=== PATIENT | female | born 1995 | race Caucasian/White ===

== ENCOUNTER 2017-08-04 15:40 | Emergency (ER) | payer BC ==
[~2017-08-04 15:40] MED LIST: CLIN300C99 PO; ESCI20TA38 PO; ONDA4TAB9 PO
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
[2017-08-04] MEDS ORDERED: cefTRIAXone 250 MG VIAL IM ONE (17:40)
[2017-08-04] MEDS ORDERED: LEVONORGESTREL 1.5 MG TAB PO ONE (17:40)
[2017-08-04] MEDS ORDERED: AZITHROMYCIN 250 MG TAB PO ONE (17:40)
[2017-08-04] MEDS ORDERED: METRONIDAZOLE 500 MG TABLET PO ONE (17:40)
== END 2017-08-04 17:45 | disposition home or self-care (01) ==
LOC: ER 16:08
DX: T74.21XA Adult sexual abuse, confirmed, initial encounter (principal); K62.89 Other specified diseases of anus and rectum; S20.211A Contusion of right front wall of thorax, initial encounter; S20.111A Abrasion of breast, right breast, initial encounter; S50.812A Abrasion of left forearm, initial encounter; S70.211A Abrasion, right hip, initial encounter; S20.411A Abrasion of right back wall of thorax, initial encounter; R51 Headache; N93.9 Abnormal uterine and vaginal bleeding, unspecified
CPT/HCPCS: 81025; 96372; 99284; A9270; J0696; Q0144

== ENCOUNTER 2017-09-17 16:13 | Emergency (ER) | payer BC, OTHER ==
--- NOTE | 2017-09-17 16:14 | ER Report ---
History and Physical Time Seen By MD: 16:14 Hx. of Stated Complaint: allergic reaction HPI/ROS 22-year-old was all over itchy body rash 2 weeks was seen at urgent care a week ago was put on a Medrol Dosepak stated that helped until that was discontinued in rash recurred on states that his head to toe is itchy red raised states that she's had multiple episodes of this before has multiple environmental allergies is not sure what her contact was this time Allergies: Coded Allergies: latex (Verified Allergy, Unknown, 08/04/17) Home Meds Active Scripts Diphenhydramine Hcl (BENADRYL) 25 Mg Capsule, 25 MG PO Q6H for 5 Days, #20 CAPSULE Prov:BENJAMIN ORELLANA 09/17/17 Prednisone (PREDNISONE) 20 Mg Tablet, 40 MG PO QDAY for 5 Days, #5 TAB Prov:BENJAMIN ORELLANA 09/17/17 Reported Medications Albuterol Sulfate (VENTOLIN HFA) 18 Gm Inh, 1-2 PUFF INH 3-4XD, INH 09/17/17 Venlafaxine Hcl (EFFEXOR XR) 75 Mg Cap.er.24h, 75 MG PO TID 09/17/17 Discontinued Reported Medications Escitalopram Oxalate (LEXAPRO) 20 Mg Tablet, 20 MG PO QDAY, TAB 02/15/17 Past Medical/Surgical History History depression, history of recurrent allergic reaction Hx Smoking: No Exposure to Second Hand Smoke?: No Hx Substance Use Disorder: No Hx Alcohol Use: No Constitutional Vital Sign - Last 24 Hours 09/17/17 09/17/17 09/17/17 09/17/17 16:13 16:18 16:18 16:19 Pulse ??? 99 ??? Resp 16 B/P (MAP) 120/94 (103) Pulse Ox 96 O2 Delivery Room Air 09/17/17 09/17/17 09/17/17 09/17/17 16:23 16:28 16:33 16:34 Pulse 97 100 102 B/P (MAP) 118/70 (86) Pulse Ox 95 96 96 09/17/17 09/17/17 09/17/17 09/17/17 16:38 16:43 16:48 16:53 Pulse 99 94 82 81 Pulse Ox 96 97 97 97 4/1609/17/17 09/17/17 09/17/17 16:58 17:03 17:08 17:13 Pulse 81 95 94 87 Pulse Ox 96 98 98 98 09/17/17 09/17/17 09/17/17 09/17/17 17:18 17:23 17:28 17:33 Pulse 91 92 87 87 Pulse Ox 94 98 97 96 09/17/17 09/17/17 09/17/17 09/17/17 17:48 18:03 18:15 18:15 Pulse 85 92 92 Resp 18 Pulse Ox 97 96 93 O2 Delivery Room Air 09/17/17 09/17/17 09/17/17 09/17/17 18:18 18:20 18:33 18:45 Pulse 93 101 101 Resp 18 B/P (MAP) 122/74 (90) Pulse Ox 100 96 09/17/17 18:48 Pulse 97 Pulse Ox 95 Intake and Output 09/17/17 09/17/17 09/18/17 15:00 23:00 07:00 Intake Total 1050 ml Balance 1050 ml Physical Exam General Appearance: [The patient is alert, has no immediate need for airway protection and no current signs of toxicity.] [ ] Eyes: Pupils equal and round no injection. Respiratory: Chest is non tender, lungs are clear to auscultation. Cardiac: regular rate and rhythm [ ] Gastrointestinal: Abdomen is soft and non tender, no masses, bowel sounds normal. Musculoskeletal: Neck: Neck is supple and non tender. Extremities have full range of motion and are non tender. Skin: Head to toe red raised pruritic body rash [ ] DIFFERENTIAL DIAGNOSIS: After history and physical exam differential diagnosis was considered for allergic reaction, Medical Decision Making Data Points Laboratory Hematology Test 09/17/17 16:45 Group A Streptococcus Screen Negative (NEGATIVE) Chemistry Test 09/17/17 16:45 Group A Streptococcus Screen Negative (NEGATIVE) ED Course/Re-evaluation ED Course Patient with allergic reaction did have slight swelling in her lips received 125 Solu-Medrol in the emergency room as well as 50 mg Benadryl IV a liter of normal saline IV Pepcid 20 mg IV piggyback and albuterol nebulizer she did feel much better after treatment head had a current reaction that was similar and had just finished a Medrol Dosepak she had was given in follow-up information for an bedspread inspector in [place] and she will follow-up with her primary care physician tomorrow Re-evaluation Home with Benadryl, and prednisone Decision to Disposition Date: Sep 17, 2017 Decision to Disposition Time: 18:48 Depart Departure Latest Vital Signs Vital Signs Date Time Temp Pulse Resp B/P (MAP) Pulse Ox O2 Delivery O2 Flow Rate FiO2 09/17/17 18:48 97 95 09/17/17 18:45 122/74 (90) 09/17/17 18:20 18 09/17/17 18:15 Room Air Impression: Primary Impression: Allergic reaction Condition: Improved Disposition: HOME OR SELF-CARE Referrals: SEGUNDO WOLFF MD (PCP) 1 Day New Scripts Diphenhydramine Hcl (BENADRYL) 25 Mg Capsule 25 MG PO Q6H for 5 Days, #20 CAPSULE Prov: BENJAMIN ORELLANA 09/17/17 Prednisone (PREDNISONE) 20 Mg Tablet 40 MG PO QDAY for 5 Days, #5 TAB Prov: BENJAMIN ORELLANA 09/17/17 Patient Instructions: General Allergic Reaction (ED) Additional Instructions: Contact information given for bedspread inspector in [place] please call for follow-up appointment see her primary care physician tomorrow take Benadryl 25 mg 4 times a day for the next 5 days. Prednisone 40 mg daily next 5 days turn for any worsening symptoms any difficulty swallowing any problems with her breathing BENJAMIN ORELLANA Sep 17, 2017 16:14
[2017-09-17] MEDS ORDERED: ANAPHYLAXIS KIT 1 EA ONE (16:17)
[2017-09-17] MEDS ORDERED: FAMOTIDINE(*) 20MG/50ML PREMIX 50 ML IVPB ONE (16:20)
[2017-09-17] MEDS ORDERED: NS(*) 0.9% 1000 ML BAG 1,000 ML IV ONE (16:20)
[2017-09-17] MEDS ORDERED: methylPREDNIS SUCC 125 MG/2ML IVP ONE (16:20)
[2017-09-17] MEDS ORDERED: diphenhydrAMINE 50 MG/ML VIAL IVP ONE (16:20)
[2017-09-17] MEDS ORDERED: VENL75CA58 PO (16:23)
[2017-09-17] MEDS ORDERED: ALB18R INH (16:24)
[2017-09-17] MEDS ORDERED: PRED20TA6 PO (17:43)
[2017-09-17] MEDS ORDERED: DIPH-740 PO (17:43)
[2017-09-17] MEDS ORDERED: ALBUTEROL 2.5 MG/3 ML NEB NEB ONE (18:15)
[2017-09-17] MEDS ORDERED: diphenhydrAMINE 25 MG CAP PO ONE (18:40)
[2017-09-17 18:45] VITALS: BP 122/74
== END 2017-09-17 18:53 | disposition home or self-care (01) ==
LOC: ER 16:16
DX: T78.40XA Allergy, unspecified, initial encounter (principal)
CPT/HCPCS: 87081; 87880; 94640; 96361; 96365; 96375; 99284; J1200; J2930; J3490; J7030; J7613; Q0163

== ENCOUNTER 2017-09-27 02:32 | Emergency (ER) | payer BC ==
[~2017-09-27 02:32] MED LIST changes: +ALB18R INH; +DIPH-740 PO; +PRED20TA6 PO; +VENL75CA58 PO
[2017-09-27] MEDS ORDERED: FAMOTIDINE(*) 20MG/50ML PREMIX 50 ML IVPB ONE (02:38)
[2017-09-27] MEDS ORDERED: NS(*) 0.9% 1000 ML BAG 1,000 ML IV ONE (02:38)
[2017-09-27] MEDS ORDERED: methylPREDNIS SUCC 125 MG/2ML IVP ONE (02:40)
[2017-09-27] MEDS ORDERED: diphenhydrAMINE 50 MG/ML VIAL IVP ONE (02:40)
[2017-09-27 02:53] LABS: PLATELET COUNT, AUTOMATED 272 K/uL (150-450)
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
--- NOTE | 2017-09-27 02:57 | EKG ---
FACILITY: [facility] - [place] PATIENT NAME: CHEN CAREY : [id number] MR: [id number] V: [id number] EXAM DATE: ORDERING PHYSICIAN: SUNNY CAIN TECHNOLOGIST: LIBRA Test Reason : CHEST PAIN Blood Pressure : / mmHG Vent. Rate : 100 BPM Atrial Rate : 100 BPM P-R Int : 180 ms QRS Dur : 076 ms QT Int : 340 ms P-R-T Axes : 055 060 036 degrees QTc Int : 438 ms Normal sinus rhythm Low voltage QRS Borderline ECG No previous ECGs available Confirmed by RHEA PATRICK ([id number]) on 09/27/2017 12:31:19 PM Referred By: Confirmed By:RHEA PATRICK
[2017-09-27] MEDS ORDERED: ONDANSETRON 4 MG/2 ML VIAL IVP ONE (04:20)
[2017-09-27] MEDS ORDERED: MORPHINE 4 MG/ML SDV IVP PRN (04:20)
--- NOTE | 2017-09-27 04:39 | RADIOLOGY IMAGING REPORT ---
FACILITY: [facility] - [place], [place] PATIENT NAME: Jenelle Marino : 1995 MR: [id number] V: [id number] EXAM DATE: [id number] ORDERING PHYSICIAN: SUNNY CAIN TECHNOLOGIST: Location: Patient: Jenelle Marino : 1995 Visit/Account:[id number] Date of Sevice: 09/27/2017 Exam type: CHEST SINGLE AP History: Chest pain, vomiting Comparison: None. Findings: Both lungs are well-expanded. Slightly prominent interstitial markings may represent breast attenuati on. There is no focal infiltrate, pleural effusion or pneumothorax. Heart size is normal. The osseous structures demonstrate a prominent rightward thoracic scoliosis. IMPRESSION: 1. No acute cardiopulmonary disease. Report Dictated By: Jose Pierre MD at 09/27/2017 4:33 AM Report E-Signed By: Jose Pierre MD at 09/27/2017 4:34 AM WSN:[id number]
[2017-09-27] MEDS ORDERED: IOPAMIDOL 76% 75 ML INFUS BTL 75 ML ONE ×2 (06:08→06:32)
[2017-09-27] MEDS ORDERED: NS 0.9% 150 ML BAG 150 ML ONE ×2 (06:08→06:32)
[2017-09-27] MEDS ORDERED: birth control (06:34)
[2017-09-27 07:00] VITALS: BP 122/76
--- NOTE | 2017-09-27 07:43 | RADIOLOGY IMAGING REPORT ---
FACILITY: [facility] PATIENT NAME: Jenelle Marino : 1995 MR: [id number] V: [id number] EXAM DATE: [id number] ORDERING PHYSICIAN: SUNNY CAIN TECHNOLOGIST: Location: [facility] - [place] Patient: Jenelle Marino : 1995 Visit/Account:[id number] Date of Sevice: 09/27/2017 CTA CHEST WW/O CNTR (PULM ANG) HISTORY: Clinical concern for pulmonary embolus. COMPARISON: No prior CT. Chest x-ray earlier same day. TECHNIQUE: Pulmonary embolus protocol - Thin-slice axial imaging of the chest was performed during ma ximal pulmonary arterial opacification with intravenous nonionic iodinated contrast. 3D coronal slab MIPs and 2D reconstructions in the coronal and sagittal planes were performed to aid in pulmonary emb olus detection. Outreach Nurse images have been stored on PACS. One of the following dose optimization techniques was utilized in the performance of this exam: Autom ated exposure control; adjustment of the mA and/or kV according to the patient's size; or use of an i terative reconstruction technique. Specific details can be referenced in the facility's radiology CT exam operational policy. CONTRAST: 125 mL of IV Isovue-370. FINDINGS: Images were repeated due to suboptimal opacification of the pulmonary arteries. Pulmonary arteries: Bifurcation of the pulmonary arteries is improved on the second series and there is adequate opacification to the segmental branches. There are no filling defects in the visible pulm onary arteries. Pulmonary arteries are normal in caliber. Thoracic inlet: Normal. Aorta: No aneurysm or dissection. There is no atherosclerosis of the aorta. Heart / Pericardium: The heart is normal. There is no ventricular septal deviation. There is no peric ardial effusion. There is no coronary artery calcification. Mediastinum / Charisma: Normal mediastinum. No lymphadenopathy. Lungs / Pleura: No pleural effusion. There is minimal dependent atelectasis. No pneumothorax. The air ways are normal. Upper abdomen: Normal. Musculoskeletal/vertebra/body wall: There are numerous Schmorl nodes. There is mild wedging of mid to lower thoracic vertebral bodies, likely physiologic. There is a moderate rightward curvature of the thoracic spine. IMPRESSION: 1. No pulmonary embolism. Report Dictated By: Kourtney Stockton at 09/27/2017 7:30 AM Report E-Signed By: Kourtney Stockton at 09/27/2017 7:39 AM WSN:[id number]
== END 2017-09-27 08:15 | disposition home or self-care (01) ==
LOC: ER 02:49
DX: R07.9 Chest pain, unspecified (principal)
CPT/HCPCS: 71045; 71275; 84484; 84703; 85025; 85379; 93005; 96361; 96365; 96375; 99284; J1200; J2270; J2405; J2930; J3490; J7030; Q9967; 82040; 82247; 82310; 82374; 82435; 82565; 82947; 84075; 84132; 84155; 84295; 84450; 84460; 84520

== ENCOUNTER → 2017-11-13 | Outpatient (CLI) | payer BC ==
[~2017-11-13] MED LIST changes: +birth control
[2017-11-13 11:51] LABS: PLATELET COUNT, AUTOMATED 301 K/uL (150-450)
== END ==
LOC: LAB 10:58
PROVIDERS: ATTEND Specialist
DX: L50.1 Idiopathic urticaria (principal); L29.9 Pruritus, unspecified
CPT/HCPCS: 36415; 82040; 82247; 82310; 82374; 82435; 82565; 82785; 82947; 84075; 84132; 84155; 84295; 84443; 84450; 84460; 84520; 85025; 85651; 86038; 86140; 86376

== ENCOUNTER 2017-12-20 07:15 | Emergency (ER) | payer BC ==
--- NOTE | 2017-12-20 07:17 | ER Report ---
History and Physical Time Seen By MD: 07:17 HPI/ROS CHIEF COMPLAINT: Hives HISTORY OF PRESENT ILLNESS: Patient is a 22-year-old female with no contributory past medical history who is been having episodic hives since this past September. She has been seen by a both the ER in urgent care for hives treated with antihistamines and a course of steroids. She is followed up with an allergy /immunology and had testing done and was found to be allergic to "tree nuts". She denies any new pets or detergents or chemical exposures. She denies any respiratory distress. Patient presents today with diffuse hives throughout her body. She has been consistently taking Benadryl every 6 hours without significant relief. Patient does carry an epinephrine pen but has not used it. REVIEW OF SYSTEMS: Respiratory: No cough, no dyspnea. Cardiovascular: No chest pain, no palpitations. Gastrointestinal: No vomiting, no abdominal pain. Musculoskeletal: No back pain. Skin: Hives Allergies: Coded Allergies: latex (Verified Allergy, Unknown, 08/04/17) tree nut (Verified Allergy, Unknown, 09/27/17) Home Meds Active Scripts Diphenhydramine Hcl (BENADRYL) 25 Mg Capsule, 25 MG PO Q6H for 5 Days, #20 CAPSULE Prov:BENJAMIN ORELLANA 09/17/17 Reported Medications Montelukast Sodium (SINGULAIR) 10 Mg Tablet, 1 TAB PO QDAY, TAB 12/20/17 Albuterol Sulfate (VENTOLIN HFA) 18 Gm Inh, 1-2 PUFF INH 3-4XD, INH 09/17/17 Venlafaxine Hcl (EFFEXOR XR) 75 Mg Cap.er.24h, 75 MG PO TID 09/17/17 Discontinued Reported Medications [ control] No Conflict Check 09/27/17 Past Medical/Surgical History Noncontributory towards this chief complaint Hx Smoking: No Exposure to Second Hand Smoke?: No Hx Substance Use Disorder: No Hx Alcohol Use: No Constitutional Vital Sign - Last 24 Hours 12/20/17 12/20/17 07:18 07:51 Temp 98.7 Pulse 110 98 Resp 18 16 B/P (MAP) 133/75 118/73 (88) Pulse Ox 93 95 O2 Delivery Room Air Physical Exam General Appearance: The patient is alert, has no immediate need for airway protection and no current signs of toxicity. Eyes: Pupils equal and round no injection. Respiratory: Chest is non tender, lungs are clear to auscultation. Cardiac: regular rate and rhythm Gastrointestinal: Abdomen is soft and non tender, no masses, bowel sounds normal. Musculoskeletal: Neck: Neck is supple and non tender. Extremities have full range of motion and are non tender. Skin: Hives Medical Decision Making ED Course/Re-evaluation ED Course 12/20/2017 7:44:03 am plan at this time will be to give IM epinephrine. We'll discharge the patient on a course of oral steroids along with cyproheptadine Decision to Disposition Date: Dec 20, 2017 Decision to Disposition Time: 07:44 Depart Departure Latest Vital Signs Vital Signs Date Time Temp Pulse Resp B/P (MAP) Pulse Ox O2 Delivery O2 Flow Rate FiO2 12/20/17 07:51 98 16 118/73 (88) 95 12/20/17 07:18 98.7 Room Air Impression: Primary Impression: Hives Condition: Improved Disposition: HOME OR SELF-CARE Referrals: SEGUNDO WOLFF MD (PCP) 1 Week if symptoms persist Patient Instructions: Urticaria (ED) Additional Instructions: Discontinue use of Benadryl while taking cyproheptadine as directed. Take your oral steroids as directed until complete Keep your follow-up appointment with dermatology. VALENTE HENDRIX MD Dec 20, 2017 07:17
[2017-12-20] MEDS ORDERED: MONT10TA PO (07:27)
[2017-12-20] MEDS ORDERED: EPINEPHrine 0.3 MG SYR IM ONLY ONE (07:35)
[2017-12-20 07:51] VITALS: BP 118/73
== END 2017-12-20 07:50 | disposition home or self-care (01) ==
LOC: ER 07:32
DX: L50.9 Urticaria, unspecified (principal)
CPT/HCPCS: 96372; 99283; J0171

== ENCOUNTER 2018-01-07 18:10 | Emergency (ER) | payer BC ==
[~2018-01-07 18:10] MED LIST changes: +MONT10TA PO
--- NOTE | 2018-01-07 18:11 | ER Report ---
History and Physical Time Seen By MD: 18:10 HPI/ROS CHIEF COMPLAINT: Right lower quadrant abdominal pain HISTORY OF PRESENT ILLNESS: Patient is a 22-year-old female here with complaints of right lower quadrant abdominal pain associated proximal 1729 and has been constant, sharp, stabbing pain. Patient denies prior history of surgery of the abdomen. Denies fevers but does endorse nausea, vomiting. Denies hematuria, dysuria, chest pain, shortness of breath. Denies prior history of similar pain. Has not taken thuf-dzs-ghnimcz medications for analgesia. Patient reports the pain is worse on moving especially with ambulation. REVIEW OF SYSTEMS: Constitutional: No fever, no chills. Eyes: No discharge. ENT: No sore throat. Cardiovascular: No chest pain, no palpitations. Respiratory: No cough, no shortness of breath. Gastrointestinal: + RLQ abdominal pain, + nausea, vomiting. Genitourinary: No hematuria. Musculoskeletal: No back pain. Skin: No rashes. Neurological: No headache. Allergies: Coded Allergies: latex (Verified Allergy, Unknown, 08/04/17) tree nut (Verified Allergy, Unknown, 09/27/17) Home Meds Active Scripts Oxycodone Hcl/Acetaminophen (PERCOCET 5-325 MG TABLET) 1 Each Tablet, 1 EACH PO Q4H Y for PAIN, #6 TAB 0 Refills Prov:ARIK BARRIENTOS DO 01/07/18 Ondansetron (ZOFRAN ODT) 4 Mg Tab.rapdis, 4 MG PO Q6H Y for NAUSEA/VOMITING, # 20 TAB.HARJINDER 0 Refills Prov:ARIK BARRIENTOS DO 01/07/18 Diphenhydramine Hcl (BENADRYL) 25 Mg Capsule, 25 MG PO Q6H for 5 Days, #20 CAPSULE Prov:BENJAMIN ORELLANA 09/17/17 Reported Medications Montelukast Sodium (SINGULAIR) 10 Mg Tablet, 1 TAB PO QDAY, TAB 12/20/17 Albuterol Sulfate (VENTOLIN HFA) 18 Gm Inh, 1-2 PUFF INH 3-4XD, INH 09/17/17 Venlafaxine Hcl (EFFEXOR XR) 75 Mg Cap.er.24h, 75 MG PO TID 09/17/17 Hx Smoking: No Exposure to Second Hand Smoke?: No Hx Substance Use Disorder: No Hx Alcohol Use: No Constitutional Vital Sign - Last 24 Hours 01/07/18 18:17 Temp 98.4 Pulse 118 Resp 20 B/P (MAP) 129/83 Pulse Ox 96 O2 Delivery Room Air Physical Exam General Appearance: The patient is alert, has no immediate need for airway protection and no signs of toxicity. NAD Eyes: Pupils equal and round no pallor or injection. ENT, Mouth: Mucous membranes are moist. Respiratory: There are no retractions, lungs are clear to auscultation. Cardiovascular: + Tachycardia, no murmurs Gastrointestinal: Abdomen is soft and = TTP RLQ with rebound, no masses, bowel sounds normal. Neurological: No focal neuro deficits Skin: Warm and dry, no rashes. Musculoskeletal: Neck is supple non tender. Extremities are nontender, nonswollen and have full range of motion. DIFFERENTIAL DIAGNOSIS: After history and physical exam differential diagnosis was considered for abdominal pain including but not limited to appendicitis, cholecystitis, gastritis and urinary tract infection. Medical Decision Making Data Points Result Diagram: 01/07/18 1823 01/07/18 1823 Laboratory Hematology Test 01/07/18 18:23 Red Blood Count 4.93 M/uL (4.17-5.56) Mean Corpuscular Volume 84.2 fL (80.0-96.0) Mean Corpuscular Hemoglobin 29.8 pg (26.0-33.0) Mean Corpuscular Hemoglobin Concent 35.4 g/dL (32.0-36.0) Red Cell Distribution Width 13.2 % (11.5-14.5) Mean Platelet Volume 7.7 fL (7.2-11.1) Neutrophils (%) (Auto) 72.0 % (39.4-72.5) Lymphocytes (%) (Auto) 21.6 % (17.6-49.6) Monocytes (%) (Auto) 6.0 % (4.1-12.4) Eosinophils (%) (Auto) 0.1 % (0.4-6.7) Basophils (%) (Auto) 0.3 % (0.3-1.4) Nucleated RBC Relative Count (auto) 0.1 /100WBC Neutrophils # (Auto) 5.4 K/uL (2.0-7.4) Lymphocytes # (Auto) 1.6 K/uL (1.3-3.6) Monocytes # (Auto) 0.4 K/uL (0.3-1.0) Eosinophils # (Auto) 0.0 K/uL (0.0-0.5) Basophils # (Auto) 0.0 K/uL (0.0-0.1) Nucleated RBC Absolute Count (auto) 0.01 K/uL Urine Color Yellow Urine Clarity Clear Urine pH 6.0 pH (4.8-9.5) Urine Specific Paloma 1.021 Urine Protein Negative mg/dL (NEGATIVE) Urine Glucose (UA) Negative mg/dL (NEGATIVE) Urine Ketones Negative mg/dL (NEGATIVE) Urine Blood Negative (NEGATIVE) Urine Nitrite Negative (NEGATIVE) Urine Bilirubin Negative (NEGATIVE) Urine Urobilinogen 2.0 mg/dL (0.2-1.9) Urine Leukocyte Esterase Negative (NEGATIVE) Urine RBC <1 /HPF (0-2/HPF) Urine WBC <1 /HPF (0-5/HPF) Urine Squamous Epithelial Cells Few /LPF (</=FEW) Urine Bacteria Negative /HPF (NONE-FEW) Urine Mucus Few /HPF (NONE-FEW) Sodium Level 139 mmol/L (137-145) Potassium Level 4.0 mmol/L (3.5-5.0) Chloride Level 105 mmol/L (98-107) Carbon Dioxide Level 25 mmol/L (22-31) Blood Urea Nitrogen 9 mg/dl (7-18) Creatinine 0.70 mg/dl (0.52-1.04) Glomerular Filtration Rate Calc > 60.0 Random Glucose 103 mg/dl (75-110) Calcium Level 8.9 mg/dl (8.4-10.2) Total Bilirubin 0.3 mg/dl (0.2-1.3) Aspartate Amino Transf (AST/SGOT) 26 U/L (0-35) Alanine Aminotransferase (ALT/SGPT) 27 U/L (0-56) Alkaline Phosphatase 70 U/L (0-126) C-Reactive Protein 3.5 mg/dl (<1.0) Total Protein 6.8 g/dl (6.3-8.2) Albumin 4.1 g/dl (3.5-5.0) Lipase 82 U/L (23-300) Human Chorionic Gonadotropin, Qual Negative (NEGATIVE) Chemistry Test 01/07/18 18:23 White Blood Count 7.5 k/uL (4.5-11.0) Red Blood Count 4.93 M/uL (4.17-5.56) Hemoglobin 14.7 g/dL (12.0-16.0) Hematocrit 41.5 % (34.0-47.0) Mean Corpuscular Volume 84.2 fL (80.0-96.0) Mean Corpuscular Hemoglobin 29.8 pg (26.0-33.0) Mean Corpuscular Hemoglobin Concent 35.4 g/dL (32.0-36.0) Red Cell Distribution Width 13.2 % (11.5-14.5) Platelet Count 308 K/uL (150-450) Mean Platelet Volume 7.7 fL (7.2-11.1) Neutrophils (%) (Auto) 72.0 % (39.4-72.5) Lymphocytes (%) (Auto) 21.6 % (17.6-49.6) Monocytes (%) (Auto) 6.0 % (4.1-12.4) Eosinophils (%) (Auto) 0.1 % (0.4-6.7) Basophils (%) (Auto) 0.3 % (0.3-1.4) Nucleated RBC Relative Count (auto) 0.1 /100WBC Neutrophils # (Auto) 5.4 K/uL (2.0-7.4) Lymphocytes # (Auto) 1.6 K/uL (1.3-3.6) Monocytes # (Auto) 0.4 K/uL (0.3-1.0) Eosinophils # (Auto) 0.0 K/uL (0.0-0.5) Basophils # (Auto) 0.0 K/uL (0.0-0.1) Nucleated RBC Absolute Count (auto) 0.01 K/uL Urine Color Yellow Urine Clarity Clear Urine pH 6.0 pH (4.8-9.5) Urine Specific Paloma 1.021 Urine Protein Negative mg/dL (NEGATIVE) Urine Glucose (UA) Negative mg/dL (NEGATIVE) Urine Ketones Negative mg/dL (NEGATIVE) Urine Blood Negative (NEGATIVE) Urine Nitrite Negative (NEGATIVE) Urine Bilirubin Negative (NEGATIVE) Urine Urobilinogen 2.0 mg/dL (0.2-1.9) Urine Leukocyte Esterase Negative (NEGATIVE) Urine RBC <1 /HPF (0-2/HPF) Urine WBC <1 /HPF (0-5/HPF) Urine Squamous Epithelial Cells Few /LPF (</=FEW) Urine Bacteria Negative /HPF (NONE-FEW) Urine Mucus Few /HPF (NONE-FEW) Glomerular Filtration Rate Calc > 60.0 Calcium Level 8.9 mg/dl (8.4-10.2) Total Bilirubin 0.3 mg/dl (0.2-1.3) Aspartate Amino Transf (AST/SGOT) 26 U/L (0-35) Alanine Aminotransferase (ALT/SGPT) 27 U/L (0-56) Alkaline Phosphatase 70 U/L (0-126) C-Reactive Protein 3.5 mg/dl (<1.0) Total Protein 6.8 g/dl (6.3-8.2) Albumin 4.1 g/dl (3.5-5.0) Lipase 82 U/L (23-300) Human Chorionic Gonadotropin, Qual Negative (NEGATIVE) Urinalysis Test 01/07/18 18:23 Urine Color Yellow Urine Clarity Clear Urine pH 6.0 pH (4.8-9.5) Urine Specific Paloma 1.021 Urine Protein Negative mg/dL (NEGATIVE) Urine Glucose (UA) Negative mg/dL (NEGATIVE) Urine Ketones Negative mg/dL (NEGATIVE) Urine Blood Negative (NEGATIVE) Urine Nitrite Negative (NEGATIVE) Urine Bilirubin Negative (NEGATIVE) Urine Urobilinogen 2.0 mg/dL (0.2-1.9) Urine Leukocyte Esterase Negative (NEGATIVE) Urine RBC <1 /HPF (0-2/HPF) Urine WBC <1 /HPF (0-5/HPF) Urine Squamous Epithelial Cells Few /LPF (</=FEW) Urine Bacteria Negative /HPF (NONE-FEW) Urine Mucus Few /HPF (NONE-FEW) ED Course/Re-evaluation ED Course Patient is a 22-year-old female here with complaints of right lower quadrant abdominal pain with acute onset approximately 1730 which is been constant, sharp stabbing with associated nausea and vomiting. Patient denies fevers, chills, chest pain, shortness of breath, dysuria, hematuria. She does have significant pain on palpation of the right lower quadrant with rebound tenderness. There is no distention, guarding. Patient denies prior history of abdominal surgeries of the abdomen. Patient is tachycardic on exam. CT abdomen and pelvis showed no acute appendicitis. Patient received fluid bolus, Zofran, fentanyl for analgesia. Labs were unremarkable. Patient was given percocet and zofran for outpatient symptomatic treatment. Decision to Disposition Date: Jan 07, 2018 Decision to Disposition Time: 19:50 Depart Departure Latest Vital Signs Vital Signs Date Time Temp Pulse Resp B/P (MAP) Pulse Ox O2 Delivery O2 Flow Rate FiO2 01/07/18 18:17 98.4 118 20 129/83 96 Room Air Impression: Primary Impression: Abdominal pain Additional Impression: Nausea and vomiting Condition: Improved Disposition: HOME OR SELF-CARE New Scripts Oxycodone Hcl/Acetaminophen (PERCOCET 5-325 MG TABLET) 1 Each Tablet 1 EACH PO Q4H Y for PAIN, #6 TAB 0 Refills Prov: ARIK BARRIENTOS DO 01/07/18 Ondansetron (ZOFRAN ODT) 4 Mg Tab.rapdis 4 MG PO Q6H Y for NAUSEA/VOMITING, #20 TAB.HARJINDER 0 Refills Prov: ARIK BARRIENTOS DO 01/07/18 Patient Instructions: Abdominal Pain (ED) Additional Instructions: You may take 1 tablet of Zofran every 6-8 hours as needed for nausea. You may take 1 tablet of Percocet every 6-8 hours as needed for pain. Please return promptly if you develop worsening pain, nausea, vomiting, fevers or chills Problem Qualifiers ARIK BARRIENTOS DO Jan 07, 2018 18:11
[2018-01-07] MEDS ORDERED: ONDANSETRON 4 MG/2 ML VIAL IVP ONE (18:25)
[2018-01-07] MEDS ORDERED: NS(*) 0.9% 1000 ML BAG 1,000 ML IV ONE (18:25)
[2018-01-07] MEDS ORDERED: fentaNYL CITR 100 MCG/2 ML AMP IVP ONE (18:25)
[2018-01-07 18:34] LABS: PLATELET COUNT, AUTOMATED 308 K/uL (150-450)
[2018-01-07] MEDS ORDERED: IOPAMIDOL 76% 100 ML INFUS BTL 100 ML ONE (18:38)
--- NOTE | 2018-01-07 19:41 | RADIOLOGY IMAGING REPORT ---
FACILITY: [facility] PATIENT NAME: Jenelle Mraino : 1995 MR: [id number] V: [id number] EXAM DATE: ORDERING PHYSICIAN: ARIK BARRIENTOS TECHNOLOGIST: Location: [facility] Patient: Jenelle Marino : 1995 Visit/Account:[id number] Date of Sevice: 01/07/2018 EXAMINATION: CT abdomen and pelvis with contrast COMPARISON: None. HISTORY: Right lower quadrant abdominal pain. PROCEDURE: Multiplanar contrast enhanced CT of the abdomen and pelvis with 95 mL intravenous Isovue 3 70. One of the following dose optimization techniques was utilized in the performance of this exam: A utomated exposure control; adjustment of the mA and/or kV according to the patient's size; or use of an iterative reconstruction technique. Specific details can be referenced in the facility's radiolo gy CT exam operational policy. FINDINGS: Visualized thorax: Negative. Liver: Negative. Gallbladder and biliary system: Negative Spleen: Negative. Pancreas: Negative. Adrenal glands: Negative. Kidneys and bladder: No renal mass or evidence of an obstructive uropathy. Urinary bladder is unrema rkable. Vessels: Within normal limits. Bowel and mesentery: Stomach, small bowel, and appendix are unremarkable. Small amount of stool in th e colon. No bowel or mesenteric inflammation. Pelvic organs: Negative. Lymph nodes: No adenopathy. Free air/free fluid: None. Abdominal wall and osseous structures: Negative. IMPRESSION: No findings of acute disease in the abdomen or pelvis. Unremarkable appendix. Report Dictated By: Clive De Guzman MD at 01/07/2018 7:33 PM Report E-Signed By: Clive De Guzman MD at 01/07/2018 7:39 PM WSN:[id number]
[2018-01-07] MEDS ORDERED: ONDA4TAB PO (19:51)
[2018-01-07] MEDS ORDERED: OXYC-865 PO (19:51)
[2018-01-07 20:00] VITALS: BP 111/68
== END 2018-01-07 20:04 | disposition home or self-care (01) ==
LOC: ER 18:33
DX: R10.31 Right lower quadrant pain (principal); R11.2 Nausea with vomiting, unspecified
CPT/HCPCS: 74177; 81001; 83690; 84703; 85025; 86140; 96361; 96374; 96375; 99284; J2405; J3010; J7030; Q9967; 82040; 82247; 82310; 82374; 82435; 82565; 82947; 84075; 84132; 84155; 84295; 84450; 84460; 84520

== ENCOUNTER 2018-01-25 07:00 | Outpatient (RCR) | payer BC ==
[~2018-01-25 07:00] MED LIST changes: +ONDA4TAB PO; +OXYC-865 PO
--- NOTE | 2018-01-25 09:40 | RADIOLOGY IMAGING REPORT ---
FACILITY: [facility] [place] PATIENT NAME: Jenelle Marino : 1995 MR: [id number] V: [id number] EXAM DATE: ORDERING PHYSICIAN: CYN RYAN TECHNOLOGIST: Location: [facility] Patient: Jenelle Marino : 1995 Visit/Account:[id number] Date of Sevice: 01/25/2018 BRAIN W/O CONTRAST Comparisons: None. Additional pertinent history: Chiari malformation TECHNIQUE: Multiplanar, multisequence brain MRI was performed without gadolinium contrast. FINDINGS: Sagittal midline structures and craniocervical junction: Mild inferior descent of the cerebellar tons ils with a normal appearance of the cerebellar tonsils compatible with mild cerebellar tonsillar ecto aleida. Midline shift: None. Ventricles: Negative. Brain parenchyma: Diffusion weighted imaging: Negative. Gradient sequence: Negative. T2 weighted FLAIR images: Negative. Extra-axial spaces: Negative. Dural venous sinuses and major arterial flow voids: Negative. Mastoid air cells and paranasal sinuses: Negative. Surrounding soft tissues and orbits: Negative. Impression: 1. Mild cerebellar tonsillar ectopia. 2. Brain MRI is otherwise within normal limits. Report Dictated By: Dale Coombs MD at 01/25/2018 9:34 AM Report E-Signed By: Dale Coombs MD at 01/25/2018 9:36 AM WSN:[email or web address]
--- NOTE | 2018-01-29 09:09 | RADIOLOGY IMAGING REPORT ---
FACILITY: [facility] [place] PATIENT NAME: Jenelle Marino : 1995 MR: [id number] V: [id number] EXAM DATE: ORDERING PHYSICIAN: CYN RYAN TECHNOLOGIST: Location: [facility] [place] Patient: Jenelle Marino : 1995 Visit/Account:[id number] Date of Sevice: 01/29/2018 EXAMINATION: MRI Thoracic spine without intravenous contrast HISTORY: Scoliosis. Back pain. COMPARISON: Chest CT dated 09/27/2017. TECHNIQUE: Multi-planar, multi-sequence thoracic spine MRI was performed without intravenous contras t administration. FINDINGS: Alignment: Convex rightward curvature centered at T7 with a Garcia angle of approximately 20 degrees ba sed off of the prior chest CT. Otherwise normal alignment. Vertebral marrow signal: Negative. Paravertebral soft tissues: Negative. Thoracic cord: The included portion of the spinal cord is unremarkable. The spinal cord extends below the level of the mid L1 vertebral body and below the oliev-jg-jzgy. Disc Spaces: A few small Schmorl's nodes. Small left central disc extrusion at T3-T4. No significant stenosis. IMPRESSION: 1. Convex rightward curvature centered at T7 with a Garcia angle of approximately 20 degrees based off of the prior chest CT. 2. Small left central disc extrusion at T3-T4. A few small Schmorl's nodes. No significant stenosis. Report Dictated By: Edis Soto MD at 01/29/2018 8:53 AM Report E-Signed By: Edis Soto MD at 01/29/2018 9:03 AM WSN:[email or web address]
--- NOTE | 2018-02-01 10:18 | RADIOLOGY IMAGING REPORT ---
FACILITY: [facility] [place] PATIENT NAME: Jenelle Marino : 1995 MR: [id number] V: [id number] EXAM DATE: ORDERING PHYSICIAN: CYN RYAN TECHNOLOGIST: Location: [facility] [place] Patient: Jenelle Marino : 1995 Visit/Account:[id number] Date of Sevice: 02/01/2018 C SPINE W/O CONTRAST COMPARISON: None Additional pertinent history: Scoliosis Technique: Multiplanar multisequence cervical spine MRI was performed without gadolinium enhancement. FINDINGS: Vertebral body height and alignment: Negative Vertebral marrow signal: Negative Vertebral bodies: Negative Cervical spinal cord signal, craniocervical junction and visualized posterior fossa: Negative Surrounding soft tissues: Mildly enlarged lymph nodes bilaterally. These are likely reactive. Inspection of the disc spaces reveal the following: C1-C2: Negative C2-C3: Negative C3-C4: Negative C4-C5: Negative C5-C6: Negative C6-C7: Negative C7-T1: Negative Impression: Normal cervical spine MRI Report Dictated By: Dale Coombs MD at 02/01/2018 10:09 AM Report E-Signed By: Dale Coombs MD at 02/01/2018 10:13 AM WSN:[id number]
--- NOTE | 2018-02-05 10:41 | RADIOLOGY IMAGING REPORT ---
FACILITY: [facility] PATIENT NAME: Jenelle Marino : 1995 MR: [id number] V: [id number] EXAM DATE: ORDERING PHYSICIAN: CYN RYAN TECHNOLOGIST: Location: [facility] Patient: Jenelle Marino : 1995 Visit/Account:[id number] Date of Sevice: 02/05/2018 EXAMINATION: L SPINE W/O CONTRAST INDICATION: Scoliosis COMPARISON: None TECHNIQUE: Multiplane MR imaging was performed through the lumbar spine without contrast. FINDINGS: Vertebral bodies: Normal Conus position/signal: Normal Marrow signal: Normal Extraspinal structures including psoas muscles/paraspinal soft tissues: Normal L1-2: Normal L2-3: Normal. L3-4: Normal L4-5: Partial disc desiccation, minimal disc bulge, no canal or lateral recess narrowing, mild bilate ral foraminal narrowing. L5-S1: No disc protrusion or canal narrowing. Mild bilateral foraminal narrowing. IMPRESSION: 1. L4-5 disc desiccation. 2. Mild bilateral L4-5 and L5-S1 foraminal narrowing. 3. Otherwise unremarkable lumbar spine MR. Report Dictated By: Edin Schwartz MD at 02/05/2018 10:26 AM Report E-Signed By: Edin Schwartz MD at 02/05/2018 10:37 AM WSN:[id number]
== END 2018-02-05 18:00 | disposition home or self-care (01) ==
LOC: MRI 07:00 → EDSTATUS 07:56 → MRI 02-05 18:00
PROVIDERS: ATTEND Neurological Surgery
DX: M41.25 Other idiopathic scoliosis, thoracolumbar region (principal); Q07.00 Arnold-Chiari syndrome without spina bifida or hydrocephalus
CPT/HCPCS: 70551; 72141; 72146; 72148

== ENCOUNTER 2018-02-28 10:59 | Emergency (ER) | payer BC ==
--- NOTE | 2018-02-28 11:08 | ER Report ---
History and Physical Time Seen By MD: 11:08 (RYAN PAULINO MD) Time Seen By MD: 11:38 (MANISH MOLINA) HPI/ROS CHIEF COMPLAINT: Hives HISTORY OF PRESENT ILLNESS: This is a 22-year-old female who presents to the emergency department for recurrent hives. The patient states that since September of this year she's been having recurrent hives, has been to the ER several times, has followed up with an substation design draftsperson, fire support man and rn med surg they will effectively ruled out an allergic reaction. Patient states that she woke this morning with systemic hives, try to wait it out, multiple he decided to come in. States that her throat felt itchy, she is no longer taking Benadryl, she states that this no longer works for her. She is also used her EpiPen's intermittently. No EpiPen today. No nausea or vomiting. No fevers or chills. No headaches. No shortness of breath. No chest pain. REVIEW OF SYSTEMS: Constitutional: No fever, no chills. Eyes: No discharge. ENT: No sore throat. Cardiovascular: No chest pain, no palpitations. Respiratory: No cough, no shortness of breath. Gastrointestinal: No abdominal pain, no vomiting. Genitourinary: No hematuria. Musculoskeletal: No back pain. Skin: As above. Neurological: No headache. (MANISH MOLINA) Allergies: Coded Allergies: latex (Verified Allergy, Unknown, 02/28/18) tree nut (Verified Allergy, Unknown, 02/28/18) Home Meds Active Scripts Prednisone (PREDNISONE) 20 Mg Tablet, 40 MG PO QDAY, #17 TAB 40mg once a day for 4 days. 30mg once a day for 3 days. 20mg once a day for 3 days. 10mg once a day for 2 days. Prov:MANISH MOLINA 02/28/18 Epinephrine (EPIPEN 2-LISA) 0.3 Mg/0.3 Ml Pen.injctr, 0.3 MG IM PRN, #1 PACK 0 Refills Prov:MANISH MOLINA 02/28/18 Reported Medications Lamotrigine (LAMICTAL) 150 Mg Tablet, 150 MG GT 02/28/18 Montelukast Sodium (SINGULAIR) 10 Mg Tablet, 1 TAB PO QDAY, TAB 12/20/17 Albuterol Sulfate (VENTOLIN HFA) 18 Gm Inh, 1-2 PUFF INH 3-4XD, INH 09/17/17 Venlafaxine Hcl (EFFEXOR XR) 75 Mg Cap.er.24h, 75 MG PO TID 09/17/17 Discontinued Scripts Oxycodone Hcl/Acetaminophen (PERCOCET 5-325 MG TABLET) 1 Each Tablet, 1 EACH PO Q4H PRN for PAIN, #6 TAB 0 Refills Prov:BARRIENTOS,ARIK S DO 01/07/18 Ondansetron (ZOFRAN ODT) 4 Mg Tab.rapdis, 4 MG PO Q6H PRN for NAUSEA/VOMITING, #20 TAB.HARJINDER 0 Refills Prov:BARRIENTOS,ARIK S DO 01/07/18 Diphenhydramine Hcl (BENADRYL) 25 Mg Capsule, 25 MG PO Q6H for 5 Days, #20 CAPSULE Prov:BENJAMIN ORELLANA 09/17/17 Past Medical/Surgical History The patient has a past medical and surgical history of migraines, asthma, ankle fracture, wears glasses, depression, suicide attempt on Tylenol, tonsillectomy. Recurrent hives. (MANISH MOLINA-BC) Reviewed Nurses Notes: Yes (MANISH MOLINA-BC) Hx Smoking: No Exposure to Second Hand Smoke?: No Hx Substance Use Disorder: No Hx Alcohol Use: No (RYAN PAULINO MD) Constitutional Vital Sign - Last 24 Hours 02/28/18 02/28/18 02/28/18 02/28/18 10:59 11:04 11:07 11:14 Temp 98.6 Pulse ??? 113 105 Resp 18 B/P (MAP) 136/93 136/93 (107) Pulse Ox 95 96 O2 Delivery Room Air 02/28/18 02/28/18 02/28/18 02/28/18 11:29 11:42 11:44 11:49 Pulse 107 105 107 B/P (MAP) 134/94 (107) Pulse Ox 96 95 95 02/28/18 02/28/18 02/28/18 02/28/18 12:04 12:19 12:34 12:49 Pulse 100 116 108 112 Pulse Ox 95 98 95 94 02/28/18 02/28/18 02/28/18 02/28/18 12:54 13:09 13:24 13:39 Pulse 111 105 105 111 Pulse Ox 92 90 92 95 02/28/18 02/28/18 02/28/18 02/28/18 13:54 14:07 14:09 14:24 Pulse 116 118 122 B/P (MAP) 111/68 (82) Pulse Ox 96 95 95 02/28/18 14:39 Pulse 117 Pulse Ox 95 (MANISH MOLINA [facility] Physical Exam General Appearance: The patient is alert, has no immediate need for airway protection and no signs of toxicity. Eyes: Pupils equal and round no pallor or injection. ENT, Mouth: Mucous membranes are moist, mild posterior erythema.. Respiratory: There are no retractions, lungs are clear to auscultation. Cardiovascular: Regular rate and rhythm, no murmurs, clicks or rubs. Gastrointestinal: Abdomen is soft and non tender, no masses, bowel sounds normal. Neurological: Alert and oriented 4. Moving all extremities. Following all commands. No focal neuro deficits. Skin: Urticarial rashes on the trunk, arms and legs. Musculoskeletal: Neck is supple non tender. Extremities are nontender, nonswollen and have full range of motion. DIFFERENTIAL DIAGNOSIS: After history and physical exam differential diagnosis was considered for allergic reaction, urticarial rash of unknown etiology, autoimmune disease. (MANISH MOLINA [facility] Medical Decision Making ED Course/Re-evaluation Clinical Indication for ER IV: Hydration, IV Access ED Course The patient was admitted to a room. A history and physical were obtained. Differential diagnoses were considered. An IV was started. Patient was given 20 mg IV famotidine, 125 mg IV Solu-Medrol,50 mg IV Benadryl, 0.3 mg IM epinephrine 2. 60 mg by mouth prednisone. A 1 L normal saline bolus was given. Patient didn't much better after the initial appendectomy, did have some rebound urticaria after about an hour and a half as we are getting ready to discharge her, she was given another dose of epi, she did better after this. She did not have any recurrent shortness of breath or itchiness in her throat. Patient stated that she felt like she could go home, I agreed. Patient was discharged. Patient was sent home with prescription for a ten-day course of prednisone, a prescription for EpiPen, was instructed to follow-up with Dr. Aldana the staff research associate who also does have allergy testing, as well as [facility]. 02/28/2018 1:51:55 pm where he to discharge the patient home, she did call the nurse into the room she is having recurrent urticaria. Go ahead and dose her with another round of epinephrine. No shortness of breath. Decision to Disposition Date: Feb 28, 2018 Decision to Disposition Time: 14:43 (MANISH MOLINA [facility]-) Depart Departure Latest Vital Signs Vital Signs Date Time Temp Pulse Resp B/P (MAP) Pulse Ox O2 Delivery O2 Flow Rate FiO2 02/28/18 14:39 117 95 02/28/18 14:07 111/68 (82) 02/28/18 11:04 98.6 18 Room Air (MANISH MOLINA [facility]) Impression: Primary Impression: Urticaria of unknown origin Condition: Improved Disposition: HOME OR SELF-CARE Referrals: DOROTHEA ALDANA JR, MD 2 Weeks [facility] 1 Day New Scripts Prednisone (PREDNISONE) 20 Mg Tablet 40 MG PO QDAY, #17 TAB 40mg once a day for 4 days. 30mg once a day for 3 days. 20mg once a day for 3 days. 10mg once a day for 2 days. Prov: MANISH MOLINA 02/28/18 Epinephrine (EPIPEN 2-LISA) 0.3 Mg/0.3 Ml Pen.injctr 0.3 MG IM PRN, #1 PACK 0 Refills Prov: MANISH MOLNIA-DHEERAJ 02/28/18 Patient Instructions: Urticaria (ED) Additional Instructions: Be sure to keep an epi-pen with you at all times, if you use an epi pen then you must follow up in the nearest ED. Take the prednisone as prescribed, you may need a longer course, so please follow up within one week with [facility]. Follow up with Dr. Aldana, the ENT for repeat allergy testing or consultation. Try a Zyrtec, once a day for the next 30 days too. Drink plenty of water. Get plenty of rest. Return to the ED for any other concerns for any other needs or worsening symptoms. RYAN PAULINO MD Feb 28, 2018 11:08 MANISH MOLINA-DHEERAJ Feb 28, 2018 11:41
[2018-02-28] MEDS ORDERED: LAMOT150PT GT (11:10)
[2018-02-28] MEDS ORDERED: diphenhydrAMINE 25 MG CAP PO ONE (11:25)
[2018-02-28] MEDS ORDERED: predniSONE 20 MG TAB PO ONE (11:25)
[2018-02-28] MEDS ORDERED: diphenhydrAMINE 50 MG/ML VIAL ONE (11:29)
[2018-02-28] MEDS ORDERED: FAMOTIDINE 10 MG/ML SDV IVP ONE (11:30)
[2018-02-28] MEDS ORDERED: methylPREDNIS SUCC 125 MG/2ML IVP ONE (12:10)
[2018-02-28] MEDS ORDERED: methylPREDNIS SUCC 125 MG/2ML ONE (12:11)
[2018-02-28] MEDS: EPINEPHrine HCL 1 MG/ML AMP ONE (12:15)
[2018-02-28] MEDS ORDERED: PRED20TA6 PO (13:06)
[2018-02-28] MEDS ORDERED: EPIN0.3P15 IM (13:06)
[2018-02-28] MEDS ORDERED: EPINEPHrine 0.3 MG SYR IM ONLY ONE (13:50)
[2018-02-28 14:07] VITALS: BP 111/68
== END 2018-02-28 15:12 | disposition home or self-care (01) ==
LOC: ER 11:13
DX: L50.9 Urticaria, unspecified (principal)
CPT/HCPCS: 96374; 96375; 99284; J0171; J1200; J2930; J7512; S0028

== ENCOUNTER 2018-03-14 06:11 | Emergency (ER) | payer BC ==
[~2018-03-14 06:11] MED LIST changes: +EPIN0.3P15 IM; +LAMOT150PT GT
[2018-03-14] MEDS ORDERED: diphenhydrAMINE 50 MG/ML VIAL IVP ONE (06:20)
[2018-03-14] MEDS ORDERED: ALBUTEROL 2.5 MG/3 ML NEB NEB ONE (06:20)
[2018-03-14] MEDS ORDERED: methylPREDNIS SUCC 125 MG/2ML IVP ONE (06:20)
[2018-03-14 06:30] VITALS: BP 134/86
--- NOTE | 2018-03-14 06:30 | ER Report ---
History and Physical Time Seen By MD: 06:14 Hx. of Stated Complaint: PT STARTED NOTICING FACIAL SWELLING AROUND 1AM, THEN IT GRADUALLY BECAME WORSE AROUND 5:30. PT ALSO HAS HIVES ON CHEST. PT HAS BEEN TO AN BUILDING SUPPLIES SALESPERSON RETAIL, REGISTRATION SPECIALIST THEY STATED IT WAS NOT AN ALLERGIC REACTION. HPI/ROS CHIEF COMPLAINT: Patient with swelling, difficulty breathing HISTORY OF PRESENT ILLNESS: 22-year-old female presents to the ER with facial swelling which began around midnight. He became quite severe around 5 AM. She notes difficulty breathing and some fullness to her chest. Patient has several previous ER visits for urticaria. Patient denies exposure to new foods, hygiene products, laundry detergents. She notes some hives on her anterior chest. REVIEW OF SYSTEMS: Respiratory: No cough, no dyspnea. Cardiovascular: No chest pain, no palpitations. Gastrointestinal: No vomiting, no abdominal pain. Musculoskeletal: No back pain. Allergies: Coded Allergies: latex (Verified Allergy, Unknown, 02/28/18) tree nut (Verified Allergy, Unknown, 02/28/18) Home Meds Active Scripts Prednisone 10 Mg Tab (PREDNISONE 10 MG TAB) 10 Mg Tablet, 10 MG PO QDAY PRN for prevention of allergic reactio, #14 4 tabs daily for 2 days 2 tabs daily for 2 days 1 tab daily for 2 days Prov:TIARA RAMOS DO 03/14/18 Epinephrine (EPIPEN 2-LISA) 0.3 Mg/0.3 Ml Pen.injctr, 0.3 MG IM PRN, #1 PACK 0 Refills Prov:MANISH MOLINA SPORTS EQUIPMENT REPAIRER-BC 02/28/18 Reported Medications Lamotrigine (LAMICTAL) 150 Mg Tablet, 150 MG GT 02/28/18 Montelukast Sodium (SINGULAIR) 10 Mg Tablet, 1 TAB PO QDAY, TAB 12/20/17 Albuterol Sulfate (VENTOLIN HFA) 18 Gm Inh, 1-2 PUFF INH 3-4XD, INH 09/17/17 Venlafaxine Hcl (EFFEXOR XR) 75 Mg Cap.er.24h, 75 MG PO TID 09/17/17 Discontinued Scripts Prednisone (PREDNISONE) 20 Mg Tablet, 40 MG PO QDAY, #17 TAB 40mg once a day for 4 days. 30mg once a day for 3 days. 20mg once a day for 3 days. 10mg once a day for 2 days. Prov:MANISH MOLINA SPORTS EQUIPMENT REPAIRER- 02/28/18 Hx Smoking: No Exposure to Second Hand Smoke?: No Hx Substance Use Disorder: No Hx Alcohol Use: No Constitutional Physical Exam General Appearance: The patient is alert, has no immediate need for airway prote ction and no current signs of toxicity. Vital signs stable, tachycardia, pulse ox normal HEENT: Pupils equal and round no injection. Gross facial swelling consistent with angioedema. There is significant edema to the right upper lip. TMs normal, oropharynx without tongue swelling. Respiratory: Chest is non tender, lungs are clear to auscultation., No wheezing, decreased breath sounds throughout Cardiac: regular rate and rhythm Gastrointestinal: Abdomen is soft and non tender, no masses, bowel sounds no rmal. Musculoskeletal: Neck: Neck is supple and non tender. No lymphadenopathy Extremities have full range of motion and are non tender. Skin: No rashes or lesions. DIFFERENTIAL DIAGNOSIS: After history and physical exam differential diagnosis was considered for angioedema, allergic reaction, urticaria, Medical Decision Making ED Course/Re-evaluation ED Course Patient was admitted to an examination room. H&P was done. The differential diagnoses was considered. On clinical examination. Patient has clinical findings suspicious for angioedema with lip swelling. Visits previously with hives which were thought to be an allergic reaction. Patient has followed up with biomedical equipment tech. Patient was told she did not have an allergic reaction. Tonight think her diagnosis is break clear that it is angioedema. She'll need an evaluation for angioedema and treatment. She is given steroids and Benadryl. Drops her observation of 30 minutes. She's feeling much better. She'll be discharged home. She is advised to follow-up with biomedical equipment tech for evaluation of angioedema. Information packet was provided for the patient. Decision to Disposition Date: Mar 14, 2018 Decision to Disposition Time: 06:36 Depart Departure Latest Vital Signs Impression: Primary Impression: Angioedema Condition: Improved Disposition: HOME OR SELF-CARE New Scripts Prednisone 10 Mg Tab (PREDNISONE 10 MG TAB) 10 Mg Tablet 10 MG PO QDAY PRN for prevention of allergic reactio, #14 4 tabs daily for 2 days 2 tabs daily for 2 days 1 tab daily for 2 days Prov: TIARA RAMOS DO 03/14/18 Patient Instructions: Angioedema (ED) Additional Instructions: Follow-up with your biomedical equipment tech for more specific testing Problem Qualifiers Primary Impression: Angioedema Encounter type: initial encounter Qualified Codes: T78.3XXA - Angioneurotic edema, initial encounter TIARA RAMOS DO Mar 14, 2018 06:30
[2018-03-14] MEDS ORDERED: PRED-1 PO (06:38)
== END 2018-03-14 06:53 | disposition home or self-care (01) ==
LOC: ER 06:53
DX: T78.3XXA Angioneurotic edema, initial encounter (principal)
CPT/HCPCS: 94640; 96374; 96375; 99284; J1200; J2930; J7613

== ENCOUNTER 2018-04-14 10:19 | Emergency (ER) | payer BC ==
[~2018-04-14 10:19] MED LIST changes: +PRED-1 PO
--- NOTE | 2018-04-14 10:21 | ER Report ---
History and Physical Time Seen By MD: 10:21 HPI/ROS CHIEF COMPLAINT: Allergic reaction, hives, periorbital edema HISTORY OF PRESENT ILLNESS: Patient is a 23-year-old female here with a history of allergic reactions starting overnight at approximately 3:00 in the morning. Patient has had several recurrences of urticaria, facial swelling. Patient has been evaluated by allergists, dermatologists. She was last here in early March for similar symptoms. At time of evaluation, patient denies respiratory issues, posterior oropharyngeal swelling, difficulty clearing secretions, wheezing. She does report that the rash seems to be worsening. She is currently being treated with Atarax, last dose was yesterday. Patient did not take any medications today and she reports that she is out of her epinephrine pens. Patient is hemodynamically stable, mildly tachycardic at time of evaluation, afebrile. REVIEW OF SYSTEMS: Constitutional: No fever, no chills. Eyes: + periorbital edema and erythema, no discharge ENT: + no posterior oropharyngeal edema, no stridor Cardiovascular: No chest pain, no palpitations. Respiratory: No cough, no shortness of breath, no wheezing Gastrointestinal: No abdominal pain, no vomiting. Genitourinary: No hematuria. Musculoskeletal: No back pain. Skin: + diffuse urticarial rash, blanchable Neurological: NV intact Allergies: Coded Allergies: latex (Verified Allergy, Unknown, 02/28/18) tree nut (Verified Allergy, Unknown, 02/28/18) Home Meds Active Scripts Prednisone (PREDNISONE) 20 Mg Tablet, 40 MG PO QDAY for 4 Days, #8 TAB Prov:ARIK BARRIENTOS S DO 04/14/18 Epinephrine (EPIPEN 2-LISA) 0.3 Mg/0.3 Ml Pen.injctr, 0.3 MG IM DIRECTED, #1 PACK Prov:ARIK BARRIENTOS S DO 04/14/18 Epinephrine (EPIPEN 2-LISA) 0.3 Mg/0.3 Ml Pen.injctr, 0.3 MG IM PRN, #1 PACK 0 Refills Prov:MANISH MOLINA LOFTER-BC 02/28/18 Reported Medications Lamotrigine (LAMICTAL) 150 Mg Tablet, 150 MG GT 02/28/18 Montelukast Sodium (SINGULAIR) 10 Mg Tablet, 1 TAB PO QDAY, TAB 12/20/17 Albuterol Sulfate (VENTOLIN HFA) 18 Gm Inh, 1-2 PUFF INH 3-4XD, INH 09/17/17 Venlafaxine Hcl (EFFEXOR XR) 75 Mg Cap.er.24h, 75 MG PO TID 09/17/17 Discontinued Scripts Prednisone 10 Mg Tab (PREDNISONE 10 MG TAB) 10 Mg Tablet, 10 MG PO QDAY PRN for prevention of allergic reactio, #14 4 tabs daily for 2 days 2 tabs daily for 2 days 1 tab daily for 2 days Prov:TIARA RAMOS DO 03/14/18 Hx Smoking: No Exposure to Second Hand Smoke?: No Hx Substance Use Disorder: No Hx Alcohol Use: No Constitutional Vital Sign - Last 24 Hours 04/14/18 10:24 Temp 98.0 Pulse 116 Resp 18 B/P (MAP) 132/71 Pulse Ox 96 O2 Delivery Room Air Physical Exam General Appearance: The patient is alert, has no immediate need for airway protection and no signs of toxicity. NAD Eyes: + periorbital edema ENT, Mouth: Mucous membranes are moist, no stridor, no post oropharyngeal edema, + facial edema Respiratory: There are no retractions, lungs are clear to auscultation. Cardiovascular: + tachycardic Gastrointestinal: Abdomen is soft and non tender, no masses, bowel sounds normal. Neurological: No focal neuro deficits Skin: + diffuse urticarial rash with pruritus on torso, back, arms and LE Musculoskeletal: Neck is supple non tender. Extremities are nontender, nonswollen and have full range of motion. DIFFERENTIAL DIAGNOSIS: After history and physical exam differential diagnosis was considered for allergic reaction, anaphylaxis, angioedema, contact dermatitis, food allergy Medical Decision Making ED Course/Re-evaluation ED Course Patient is a 23-year-old female with a history of recurrent allergic reactions with diffuse urticaria which seems to be worsening this episode, no airway involvement, posterior or pharyngeal edema or stridor. Patient does have some facial edema, periorbital edema with mild erythema. Patient reports taking her hydroxyzine yesterday however she has not treated herself with anything today. Symptoms reportedly started early this morning and the patient denies any new medications, foods, detergents, soaps or environmental exposures. Patient has been evaluated by feltmaker and weigher, dermatologists without a definitive diagnosis. She does report having history of allergies to tree nuts. Patient was given normal saline bolus, diphenhydramine, Solu-Medrol, famotidine for symptom management. Decision to Disposition Date: Apr 14, 2018 Decision to Disposition Time: 11:29 Depart Departure Latest Vital Signs Vital Signs Date Time Temp Pulse Resp B/P (MAP) Pulse Ox O2 Delivery O2 Flow Rate FiO2 04/14/18 10:24 98.0 116 18 132/71 96 Room Air Impression: Primary Impression: Urticaria of unknown origin Additional Impression: Facial swelling Condition: Improved Disposition: HOME OR SELF-CARE New Scripts Prednisone (PREDNISONE) 20 Mg Tablet 40 MG PO QDAY for 4 Days, #8 TAB Prov: ARIK BARRIENTOS DO 04/14/18 Epinephrine (EPIPEN 2-LISA) 0.3 Mg/0.3 Ml Pen.injctr 0.3 MG IM DIRECTED, #1 PACK Prov: ARIK BARRIENTOS DO 04/14/18 Patient Instructions: General Allergic Reaction (ED) Additional Instructions: Please take 40 mg or 2 tablets of prednisone daily for the next 4 days for treatment of her allergic reaction and allergic rash. Please fill your EpiPen prescription and administer if you develop difficulty breathing, difficulty swallowing, difficulty clearing secretions, throat swelling, severe rash. He may continue to take Atarax or hydroxyzine 1 tablet every 6 hours as needed for itching and rash. Please return immediately if you develop recurrent symptoms, difficulty breathing or swallowing, fevers, nausea, vomiting. Problem Qualifiers ARIK BARRIENTOS DO Apr 14, 2018 10:21
[2018-04-14] MEDS ORDERED: methylPREDNIS SUCC 125 MG/2ML IVP ONE (10:30)
[2018-04-14] MEDS ORDERED: FAMOTIDINE(*) 20MG/50ML PREMIX 50 ML IVPB ONE (10:30)
[2018-04-14] MEDS ORDERED: NS(*) 0.9% 1000 ML BAG 1,000 ML IV ONE (10:30)
[2018-04-14] MEDS ORDERED: diphenhydrAMINE 50 MG/ML VIAL IVP ONE (10:30)
[2018-04-14] MEDS ORDERED: PRED20TA6 PO (11:11)
[2018-04-14] MEDS ORDERED: EPIN0.3P15 IM (11:11)
[2018-04-14 11:30] VITALS: BP 120/77
== END 2018-04-14 11:39 | disposition home or self-care (01) ==
LOC: ER 10:42
DX: L50.0 Allergic urticaria (principal); R60.0 Localized edema
CPT/HCPCS: 96361; 96374; 96375; 99284; J1200; J2930; J3490; J7030

== ENCOUNTER → 2018-05-07 | Outpatient (CLI) | payer BC | LOC: LAB 10:10 | PROVIDERS: ATTEND Neurological Surgery | DX: Z01.812 Encounter for preprocedural laboratory examination (principal) | CPT/HCPCS: 36415; 81001; 81025; 84132; 85027 ==

== ENCOUNTER 2018-10-11 04:36 | Emergency (ER) | payer BC, OTHER ==
[2018-10-11] MEDS ORDERED: OMAL150V2 SQ (04:47)
--- NOTE | 2018-10-11 04:50 | ER Report ---
History and Physical Time Seen By MD: 04:45 Hx. of Stated Complaint: PT HAS SWELLING OF LEFT SIDED LOWER LIP AND LEFT EYE. PT REPORTS HAVING RANDOM SWELLING FROM HIVES. HPI/ROS CHIEF COMPLAINT: swelling HISTORY OF PRESENT ILLNESS: This is a 23 year old female. She has a history of asthma as well as episodes of intermittent hives as well as various areas of facial swelling, usually lips or around eyes. Multiple work-ups have been done and her doctors have not been able to determine a cause. Have tried various antihistamines without success. Has had swelling of the left lower lip and near the left eye for a few days. Not really worsening, slowly increasing, tonight with increase as well as some pain. Has had hives off and on for several days. No trouble breathing or swallowing, but because of the worsening, decided it was time she should come and get treatment. Has had to have IV treatments in the past. Has had to have IM epinephrine in the past as well Allergies: Coded Allergies: latex (Verified Allergy, Unknown, 10/11/18) tree nut (Verified Allergy, Unknown, 10/11/18) Home Meds Active Scripts Epinephrine (EPIPEN 2-LISA) 0.3 Mg/0.3 Ml Pen.injctr, 0.3 MG IM ONCE PRN for ANAPHYLAXIS, #1 PACK 0 Refills Prov:ANABELL MULLEN MD 10/11/18 Prednisone (PREDNISONE) 20 Mg Tablet, 60 MG PO QDAY, #12 TAB 0 Refills Prov:ANABELL MULLEN MD 10/11/18 Ondansetron 4 Mg Odt (ONDANSETRON 4 MG ODT) 4 Mg Tab.rapdis, 4 MG PO Q6H PRN for NAUSEA/VOMITING, #20 TAB 0 Refills Prov:ANABELL MULLEN MD 06/19/18 Epinephrine (EPIPEN 2-LISA) 0.3 Mg/0.3 Ml Pen.injctr, 0.3 MG IM DIRECTED, #1 PACK Prov:ARIK BARRIENTOS DO 04/14/18 Epinephrine (EPIPEN 2-LISA) 0.3 Mg/0.3 Ml Pen.injctr, 0.3 MG IM PRN, #1 PACK 0 Refills Prov:MANISH MOLINA PLAYGROUND MONITOR-BC 02/28/18 Reported Medications Omalizumab (XOLAIR) 150 Mg Vial, 150 MG SQ ONCE PER MONTH, VIAL 10/11/18 Lamotrigine (LAMICTAL) 150 Mg Tablet, 150 MG GT 02/28/18 Montelukast Sodium (SINGULAIR) 10 Mg Tablet, 1 TAB PO QDAY, TAB 12/20/17 Albuterol Sulfate (VENTOLIN HFA) 18 Gm Inh, 1-2 PUFF INH 3-4XD, INH 09/17/17 Venlafaxine Hcl (EFFEXOR XR) 75 Mg Cap.er.24h, 75 MG PO TID 09/17/17 Reviewed Nurses Notes: Yes Hx Smoking: No Exposure to Second Hand Smoke?: No Hx Substance Use Disorder: No Hx Alcohol Use: No Constitutional Vital Sign - Last 24 Hours 10/11/18 10/11/18 10/11/18 10/11/18 04:41 04:42 04:51 05:00 Pulse 104 101 Resp 16 B/P (MAP) 126/73 (90) 126/73 116/70 (85) Pulse Ox 95 95 O2 Delivery Room Air 10/11/18 10/11/18 05:06 05:30 Pulse 99 B/P (MAP) 109/67 (81) Pulse Ox 95 Physical Exam General Appearance: Alert, no distress. Eyes: Pupils equal and round no injection. Extraocular movements are intact. ENT: Left lower lip with swelling looking like angioedema. Normal oral mucosa. Moist mucous membranes. Normal tongue and posterior oropharynx, without swelling. Neck: Neck is supple and non tender. Respiratory: Chest is non tender, lungs are clear to auscultation. Cardiac: regular rate and rhythm Neuro: Alert and oriented x4. No neurologic deficits. Musculoskeletal: Extremities have full range of motion. Skin: Other than the swelling, no current rash. DIFFERENTIAL DIAGNOSIS: After history and physical exam differential diagnosis was considered for swelling, with history of uncertain cause on workups, looks like an angioedema pattern and history of hives intermittently. Medical Decision Making ED Course/Re-evaluation Clinical Indication for ER IV: Hydration, IV Access ED Course IV started, given 1000cc NS, Benadryl 25mg IV, Pepcid 20mg IV, and Solu-Medrol 125mg IV. Over time, the swelling is reduced, but not completely gone. Discussed oral treatment with the patient and will start Prednisone 60mg daily for 5 days and continue H1 and H2 blockers. Epi-Pen also prescribed. Decision to Disposition Date: October 11, 2018 Decision to Disposition Time: 06:36 Depart Departure Latest Vital Signs Vital Signs Date Time Temp Pulse Resp B/P (MAP) Pulse Ox O2 Delivery O2 Flow Rate FiO2 10/11/18 05:30 109/67 (81) 10/11/18 05:06 99 95 10/11/18 04:42 16 Room Air Impression: Primary Impression: Angioedema Additional Impression: Hives Condition: Improved Disposition: HOME OR SELF-CARE New Scripts Epinephrine (EPIPEN 2-LISA) 0.3 Mg/0.3 Ml Pen.injctr 0.3 MG IM ONCE PRN for ANAPHYLAXIS, #1 PACK 0 Refills Prov: ANABELL MULLEN MD 10/11/18 Prednisone (PREDNISONE) 20 Mg Tablet 60 MG PO QDAY, #12 TAB 0 Refills Prov: ANABELL MULLEN MD 10/11/18 Patient Instructions: Angioedema (ED) Additional Instructions: The swelling you have, and have had in the past, appears to be related to an immune response similar to allergic reaction, although exact cause remains unknown. The medications given here in the ER have decreased the swelling, and continued medicine over time should help. Take Prednisone 20mg tablets, 3 tablets once a day for 5 days. Take Zyrtec 10mg twice a day. you can use Benadryl 25mg tablets, 2 tablets every 6 hours as well, but may cause drowsiness. Taking a Zyrtec in the morning and then Benadryl at night can be done as well. Take Pepcid 20mg twice a day. Return if worsening. If severe worsening, you can use an EpiPen and then return to the ER for further treatment. Problem Qualifiers Primary Impression: Angioedema Encounter type: initial encounter Qualified Codes: T78.3XXA - Angioneurotic edema, initial encounter ANABELL MULLEN MD October 11, 2018 04:50
[2018-10-11] MEDS ORDERED: NS(*) 0.9% 1000 ML BAG 1,000 ML IV ONE (05:00)
[2018-10-11] MEDS ORDERED: FAMOTIDINE(*) 20MG/50ML PREMIX 50 ML IVPB ONE (05:00)
[2018-10-11] MEDS ORDERED: diphenhydrAMINE 50 MG/ML VIAL IVP ONE (05:00)
[2018-10-11] MEDS ORDERED: methylPREDNIS SUCC 125 MG/2ML IVP ONE (05:00)
[2018-10-11 06:30] VITALS: BP 108/88
[2018-10-11] MEDS ORDERED: predniSONE 20 MG TAB PO ONE (06:35)
[2018-10-11] MEDS ORDERED: PRED20TA6 PO (06:37)
[2018-10-11] MEDS ORDERED: EPIN0.3P15 IM (06:38)
== END 2018-10-11 06:50 | disposition home or self-care (01) ==
LOC: ER 05:06
DX: T78.3XXA Angioneurotic edema, initial encounter (principal); L50.9 Urticaria, unspecified
CPT/HCPCS: 96361; 96365; 96375; 99284; J1200; J2930; J7030; J7512